=== PATIENT | male | born 1975 | race Caucasian/White ===

== ENCOUNTER 2017-08-24 09:17 | Emergency (ER) | payer MEDICAID, OTHER ==
[~2017-08-24] VITALS: Ht 193 cm; Wt 75.0 kg
[2017-08-24 09:24] VITALS: BP 122/72
[2017-08-24] MEDS ORDERED: LIDOCAINE-MPF 1%, 5ML ONE ×2 (10:23→10:50)
[2017-08-24] MEDS ORDERED: LIDOCAINE-MPF 1%, 5ML INFIL ONE (10:30)
[2017-08-24] MEDS ORDERED: BACITRACIN ZINC OINT 500U/GM, 0.9 GM ONE (11:15)
== END 2017-08-24 11:22 | disposition home or self-care (01) ==
LOC: ED 11:15
DX: S61.411A Laceration without foreign body of right hand, initial encounter (principal); F17.200 Nicotine dependence, unspecified, uncomplicated; W45.8XXA Other foreign body or object entering through skin, initial encounter; Y93.89 Activity, other specified; Y92.89 Other specified places as the place of occurrence of the external cause; Y99.8 Other external cause status
CPT/HCPCS: 12002; 99284

== ENCOUNTER 2018-05-06 17:01 | Emergency (ER) | payer SELFPAY ==
[~2018-05-06] VITALS: Ht 190.5 cm; Wt 84.5 kg
[2018-05-06 17:26] VITALS: BP 119/79
--- NOTE | 2018-05-06 17:55 | NUR ---
PT TO AND FROM [facility] TECH. HE TOLERATED THE IMAGING WELL.
--- NOTE | 2018-05-06 18:30 | NUR ---
PT TO AND FROM [place] TECH. HE TOLERATED THE IMAGING WELL.
[2018-05-06] MEDS ORDERED: KETOROLAC 30 MG/1 ML ONE (18:37)
--- NOTE | 2018-05-06 18:54 | NUR ---
MICAH (RN) IS ASSUMING CARE OF THIS PT AT THIS TIME. SBAR REPORT WAS EXCHANGED AT THE BEDSIDE.
[2018-05-06] MEDS ORDERED: IBUPROFEN 600 MG TABLET ONE (18:56)
--- NOTE | 2018-05-06 18:58 | NUR ---
REPORT FROM [facility]. PT SITTING UP IN BED, HOB LOWERED SLIGHTLY PER PT REQUEST FOR COMFORT. AWAITING FURTHER ORDERS. NO ACUTE DISTRESS NOTED. CALL LIGHT IN REACH.
[2018-05-06] MEDS ORDERED: KETOROLAC 30 MG/1 ML IM ONE (19:00)
[2018-05-06] MEDS ORDERED: IBUPROFEN 200 MG TABLET PO ONE (19:00)
--- NOTE | 2018-05-06 19:07 | NUR ---
PT RECIEVED IBUPROFEN PER ORDERS, SEE EMAR.
--- NOTE | 2018-05-06 19:28 | NUR ---
PT GETTING DRESSED. D/C REVIEWED WITH PT, PT VERBALIZED UNDERSTANDING OF D/C INSTRUCTIONS.
== END 2018-05-06 19:46 | disposition home or self-care (01) ==
LOC: ED 19:43
DX: R51 Headache (principal); M54.2 Cervicalgia; M25.561 Pain in right knee; F17.200 Nicotine dependence, unspecified, uncomplicated; V49.49XA Driver injured in collision with other motor vehicles in traffic accident, initial encounter; Y93.89 Activity, other specified; Y92.89 Other specified places as the place of occurrence of the external cause; Y99.8 Other external cause status
CPT/HCPCS: 70450; 70486; 72125; 99284